=== PATIENT | female | born 1990 | race Caucasian/White ===

== ENCOUNTER 2017-04-09 14:30 | Emergency (ER) | payer OTHER ==
--- NOTE | 2017-04-09 15:15 | ED Physician Documentation ---
General Adult - HISTORIAN Historian: patient - HPI Stated Complaint: fever Chief Complaint: Fever Onset: days ago (1) Timing: still present, worse Severity: mild Further Comments: yes (She is a high school social studies teacher and has been exposed to strep, flu and other viral illness. She started yesterday am with fever and headache. she now has fatigue, fever and sore throat. Denies cough states if she has one it is "only a little" . She has tried OTC meds with no relief) Last known Well Code/Unknown Code: Unknown - ROS CONST: fever, recent illness EYES/ENT: sore throat, nasal drainage, nasal congestion. denies: problems with vision CVS/RESP: cough (mild ) GI/: denies: vomiting, nausea NEURO/PSYCH: headache - PAST HX Past History: none Other History: none Surgeries/Procedures: other (left knee surgery ) Immunizations: UTD Allergies/Adverse Reactions: Allergies Allergy/AdvReac Type Severity Reaction Status Date / Time No Known Allergies Allergy Verified 04/09/17 15:27 Home Medications: Ambulatory Orders Medication Instructions Recorded Ethinyl Estradiol/Drospirenone 1 tab PO DAILY 04/09/17 [Drospirenone-Ee 3-0.02 mg Tab] - SOCIAL HX Smoking History: non-smoker Alcohol Use: none Drug Use: none - FAMILY HX Family History: No - REVIEWED ASSESSMENTS Nursing Assessment Reviewed: Yes Vitals Reviewed: Yes General Adult Physical Exam - PHYSICAL EXAM GENERAL APPEARANCE: no distress (she is tearful she denies from pain but rather how poorly she feels) EENT: eye inspection normal, KAIA, TM's nml, pharyngeal erythema NECK: normal inspection RESPIRATORY: no resp distress, chest non-tender, breath sounds normal CVS: reg rate & rhythm, heart sounds normal, equal pulses, no murmur ABDOMEN: soft, normal bowel sounds, no distension, non-tender SKIN: warm/dry, normal color EXTREMITIES: non-tender, normal range of motion, no evidence of injury, no edema NEURO: oriented X3, CN's nml as tested, motor nml Discharge Clincal Impression: Influenza Referrals: Primary Doctor,No [Primary Care Provider] - 2 Days Comments: Increase fluids Tylenol and Ibuprofen as needed for fever and aches Rest Return to ER or PCP for any concerns Condition: Stable Disposition: 01 HOME, SELF-CARE Decision to Admit: NO Date of Decison to Admit: 04/09/17 Decision Time: 15:37
[2017-04-09] MEDS ORDERED: IBUPROFEN 400 MG TABLET PO ONE ×2 (15:16→15:17)
[2017-04-09 15:27] VITALS: BP 128/77
== END 2017-04-09 15:43 | disposition home or self-care (01) ==
LOC: ED 14:30
DX: J11.1 Influenza due to unidentified influenza virus with other respiratory manifestations (principal)
CPT/HCPCS: 87070; 87880; 99282